=== PATIENT | female | born 1960 | race Caucasian/White ===

== ENCOUNTER 2023-10-09 23:38 | Inpatient (IN) | payer OTHER, SELFPAY ==
[2023-10-10 03:20] VITALS: BMI 32.6
[2023-10-10] MEDS ORDERED: Ondansetron ODT 4 MG TAB PO PRN (03:46)
[2023-10-10] MEDS: diphenhydrAMINE 50 MG/ML VIAL IVP SCH ×2 (04:38→23:33)
[2023-10-10] MEDS: Metoclopramide HCl 10 MG (2 mL) VIAL IVP SCH (04:38)
[2023-10-10] MEDS: Pantoprazole DR 40 MG TAB PO SCH (08:31)
[2023-10-10] MEDS: Dexamethasone 4 MG TAB PO SCH ×2 (08:31→18:28)
[2023-10-10] MEDS: Sertraline 25 MG TAB PO SCH (08:32)
[2023-10-10] MEDS ORDERED: Iopamidol-370 76% 500 ML MDV (1 ML CHARGE) ONE (09:31)
[2023-10-10] MEDS ORDERED: Magnevist 469MG/ML 20 ML VIAL ONE (09:37)
[2023-10-10] MEDS ORDERED: Lorazepam 1 MG TAB PO SCH (14:15)
[2023-10-10 14:34] LABS: #Basophils 0.03 10x3/uL (0.0-0.2); #Eosinphils Less than 0.03 10x3/uL (0.0-0.7); %Basophils 0.2 % (0.0-1.0); %Lymphocytes 5.2 % (21.0-51.0); %Neutrophils 93.1 % (42.0-75.0); Hematocrit 46.2 % (36.0-47.0); Hemoglobin 15.6 g/dL (12.0-16.0); Mean Corpuscular HGB CONC 33.8 g/dL (32.0-36.0); Mean Corpuscular Hemoglobin 31.5 pg (27.0-31.0); Mean Corpuscular Volume 93.1 fL (78.0-98.0); Mean Platelet Volume 11.5 fL (7.4-10.4); Platelet Count 219 10x3/uL (130-400); Red Blood Cell (RBC) Count 4.96 mill/uL (4.20-5.40)
[2023-10-10 14:53] LABS: ALT (SGPT) 14 U/L (8-55); AST (SGOT) 14 U/L (5-34); Albumin 3.8 g/dL (3.4-4.8); Alkaline Phosphatase 69 U/L (40-110); Anion Gap 14 mmol/L (10-20); BUN (Urea Nitrogen) 22 mg/dL (9.8-20.1); Bilirubin, Total 0.5 mg/dL (0.2-1.2); Calc. Creatinine Clearance 79 mL/min (70-130); Calcium 9.5 mg/dL (7.8-10.44); Carbon Dioxide 23 mmol/L (23-31); Chloride 108 mmol/L (98-107); Estimated GFR 66; Globulin 3.1 g/dL (2.4-3.5); Glucose 181 mg/dL (80-115); Potassium 4.1 mmol/L (3.5-5.1); Protein, Total 6.9 g/dL (5.8-8.1); Sodium 141 mmol/L (136-145)
[2023-10-10] MEDS: Lorazepam 0.5 MG TAB PO SCH (15:47)
[2023-10-10] MEDS ORDERED: Lorazepam 2 MG/ML VIAL SLOW IVP PRN (17:43)
[2023-10-10] MEDS: levETIRAcetam 500 MG (5 mL) VIAL SLOW IVP SCH (18:28)
[2023-10-11 04:18] LABS: #Basophils 0.03 10x3/uL (0.0-0.2); #Eosinphils Less than 0.03 10x3/uL (0.0-0.7); %Basophils 0.2 % (0.0-1.0); %Lymphocytes 6.7 % (21.0-51.0); %Monocytes 2.7 % (0.0-10.0); %Neutrophils 89.7 % (42.0-75.0); Hematocrit 48.4 % (36.0-47.0); Hemoglobin 15.7 g/dL (12.0-16.0); Mean Corpuscular HGB CONC 32.4 g/dL (32.0-36.0); Mean Corpuscular Volume 95.7 fL (78.0-98.0); Mean Platelet Volume 11.2 fL (7.4-10.4); Platelet Count 204 10x3/uL (130-400); RBC Distribution Width 12.9 % (11.5-14.5); Red Blood Cell (RBC) Count 5.06 mill/uL (4.20-5.40)
[2023-10-11 04:51] LABS: ALT (SGPT) 14 U/L (8-55); AST (SGOT) 22 U/L (5-34); Albumin 3.7 g/dL (3.4-4.8); Alkaline Phosphatase 87 U/L (40-110); Anion Gap 15 mmol/L (10-20); BUN (Urea Nitrogen) 17 mg/dL (9.8-20.1); Bilirubin, Total 0.5 mg/dL (0.2-1.2); Calc. Creatinine Clearance 84 mL/min (70-130); Calcium 9.4 mg/dL (7.8-10.44); Carbon Dioxide 17 mmol/L (23-31); Chloride 110 mmol/L (98-107); Estimated GFR 71; Glucose 124 mg/dL (80-115); Potassium 4.5 mmol/L (3.5-5.1); Protein, Total 6.7 g/dL (5.8-8.1); Sodium 137 mmol/L (136-145)
[2023-10-11] MEDS: levETIRAcetam 500 MG TAB PO SCH (10:02)
[2023-10-11] MEDS ORDERED: Morphine 2 MG/ML VIAL SLOW IVP PRN (16:35)
[2023-10-11] MEDS: Lorazepam 2 MG/ML VIAL SLOW IVP PRN (16:47)
[2023-10-12 04:49] LABS: #Basophils Less than 0.03 10x3/uL (0.0-0.2); #Eosinphils Less than 0.03 10x3/uL (0.0-0.7); %Basophils 0.1 % (0.0-1.0); %Lymphocytes 7.7 % (21.0-51.0); %Monocytes 6.9 % (0.0-10.0); %Neutrophils 84.7 % (42.0-75.0); Hematocrit 48.4 % (36.0-47.0); Mean Corpuscular HGB CONC 33.1 g/dL (32.0-36.0); Mean Corpuscular Hemoglobin 31.3 pg (27.0-31.0); Mean Corpuscular Volume 94.5 fL (78.0-98.0); Mean Platelet Volume 11.6 fL (7.4-10.4); Platelet Count 228 10x3/uL (130-400); RBC Distribution Width 12.8 % (11.5-14.5); Red Blood Cell (RBC) Count 5.12 mill/uL (4.20-5.40)
[2023-10-12 06:43] LABS: ALT (SGPT) 14 U/L (8-55); AST (SGOT) 11 U/L (5-34); Albumin 3.5 g/dL (3.4-4.8); Alkaline Phosphatase 65 U/L (40-110); Anion Gap 14 mmol/L (10-20); BUN (Urea Nitrogen) 19 mg/dL (9.8-20.1); Bilirubin, Total 0.4 mg/dL (0.2-1.2); Calc. Creatinine Clearance 91 mL/min (70-130); Calcium 9.5 mg/dL (7.8-10.44); Carbon Dioxide 26 mmol/L (23-31); Chloride 106 mmol/L (98-107); Estimated GFR 78; Globulin 2.9 g/dL (2.4-3.5); Glucose 112 mg/dL (80-115); Potassium 4.1 mmol/L (3.5-5.1); Protein, Total 6.4 g/dL (5.8-8.1); Sodium 142 mmol/L (136-145)
[2023-10-12] MEDS ORDERED: Lorazepam 2 MG/ML VIAL SLOW IVP PRN (07:59)
[2023-10-12 12:32] VITALS: BP 153/80; TEMP 97.5
== END 2023-10-12 13:57 | DRG 70 ==
LOC: INTOOBSV 10-10 02:06 → 2SE 10-10 02:06 → IMCU/EMU 10-10 20:03 → OBSVTOIN 10-11 09:33 → MSONC 10-11 13:17
PROVIDERS: ADMIT Student in an Organized Health Care Education/Training Program; ATTEND Student in an Organized Health Care Education/Training Program
DX: G93.89 Other specified disorders of brain (principal); I10 Essential (primary) hypertension; E78.5 Hyperlipidemia, unspecified; G93.6 Cerebral edema; Z98.890 Other specified postprocedural states; Z79.82 Long term (current) use of aspirin; Z79.899 Other long term (current) drug therapy; Z90.710 Acquired absence of both cervix and uterus; Z87.891 Personal history of nicotine dependence; Z51.5 Encounter for palliative care
CPT/HCPCS: 36415; 70553; 71260; 74177; 76377; 80053; 85025; 86141; 93005; 93010; 96374; 96375; 96376; A9579; G0378; J1200; J1953; J2060; J2765; J8540; Q9967